=== PATIENT | female | born 1950 | race Caucasian/White ===

== ENCOUNTER → 2017-03-14 | Outpatient (CLI) | payer BC ==
[~2017-03-14] MED LIST: ACIPHEX20 MG PO; IMITREX100 MG PO; IRON325 MG PO; LAMICTAL XR300 MG PO; SANCTURA XR60 MG PO; SEROQUEL300 MG PO; SYNTHROID50 MCG PO; TYLENOL WITH C1 EACH PO; ZANTAC300 MG PO
== END | disposition home or self-care (01) ==
LOC: CDC 14:20
DX: Z01.810 Encounter for preprocedural cardiovascular examination (principal); K44.9 Diaphragmatic hernia without obstruction or gangrene
CPT/HCPCS: 93000